=== PATIENT | male | born 2000 | race Two or more races ===

== ENCOUNTER 2022-12-14 18:41 | Emergency (ER) | payer MEDICAID ==
[2022-12-14] MEDS ORDERED: Acetaminophen/Codeine 300-30 MG Tab PO ONE (18:42)
[2022-12-14] MEDS ORDERED: Cephalexin 500 MG Cap PO ONE (18:42)
== END 2022-12-14 19:44 | disposition home or self-care (01) ==
LOC: FB.ED 18:41
DX: K08.89 Other specified disorders of teeth and supporting structures (principal); Z88.0 Allergy status to penicillin
CPT/HCPCS: 99282; A9270